=== PATIENT | male | born 1955 | race Caucasian/White ===

== ENCOUNTER 2018-04-13 11:49 | Inpatient (IN) ==
[2018-04-13] MEDS ORDERED: Sodium Chloride 0.9% 1,000 ML PRIMARY IV ONE (12:03)
[2018-04-13] MEDS ORDERED: PANTOPRAZOLE IV 40 MG VIAL IVP ONE (12:03)
[2018-04-13] MEDS ORDERED: MORPHINE SULFATE 4 MG/1 ML IVP ONE (12:03)
[2018-04-13] MEDS ORDERED: ONDANSETRON 4 MG/2 ML VIAL IVP ONE (12:03)
[2018-04-13 12:30] LABS: BASOPHILS # (AUTO) 0.06 10*3/UL; BASOPHILS % (AUTO) 0.5 % (0-1); EOSINOPHILS # (AUTO) 0.34 10*3/UL; EOSINOPHILS % (AUTO) 2.9 % (0-8); Hematocrit [HCT] 43.8 % (42.0-52.0); Hemoglobin [HGB] 15.2 g/dL (14.0-18.0); LYMPHOCYTES # (AUTO) 2.58 10*3/uL; MEAN CORPUSCULAR HGB CONC 34.7 g/dL (33-37); MEAN CORPUSCULAR VOLUME 86.4 FL (80-90); MEAN PLATELET VOLUME 9.7 FL (7.4-12.2); MONOCYTES # (AUTO) 0.87 10*3/UL (0.3-0.8); MONOCYTES % (AUTO) 7.5 % (5-15); NEUTROPHILS # (AUTO) 7.69 10*3/UL; NEUTROPHILS % (AUTO) 66.7 % (50-80); PLATELET MORPHOLOGY COMMENT NORMAL MORPHOLOGY (NORM); RBC MORPHOLOGY COMMENT NORMAL MORPHOLOGY (NORM); RED BLOOD COUNT 5.07 10^6/uL (4.70-6.10); WBC MORPHOLOGY COMMENT NORMAL MORPHOLOGY (NORM)
[2018-04-13 12:43] LABS: BLOOD UREA NITROGEN 15 mg/dL (7-22); BUN/CREATININE RATIO 16.66 (6-20); LIPASE 216 IU/L (23-300); SERUM ALBUMIN 4.5 g/dL (3.5-4.8)
--- NOTE | 2018-04-13 12:49 | EKG ---
Measurements Intervals [place] Rate: 60 P: 18 MS: 163 QRS: -12 QRSD: 97 T: 56 QT: 434 QTc: 435 Interpretive Statements SINUS RHYTHM MODERATE VOLTAGE CRITERIA FOR LVH, CONSIDER NORMAL VARIANT [MEETS CRITERIA IN ONE OF: R(aVL), S(V1), R(V5), R(V5/V6)+S(V1)] NONSPECIFIC T-WAVE ABNORMALITY No previous ECG available for comparison Electronically Signed On 04-13-18 14:25:51 MDT by Prince Burns MD [email or web address]
[2018-04-13 13:38] LABS: BILIRUBIN,URINE NEGATIVE (NEG); CLARITY,URINE CLEAR (CLEAR); COLOR,URINE YELLOW (Y); GLUCOSE, URINE (UA) NEGATIVE (NEG); OCCULT BLOOD,URINE NEGATIVE (NEG); PH,URINE 5.5 (5.0-8.5); PROTEIN,URINE NEGATIVE (NEG); URINE SAMPLE TYPE CLEAN CATCH URINE; UROBILINOGEN,URINE 0.2 EU/dL (0.2)
--- NOTE | 2018-04-13 14:02 | DI ---
CT Abdomen/Pelvis W Contrast 04/13/2018 12:03 PM History: Abdominal Pain Comparison: None. Technique: Imaging was performed with a multi-detector CT scanner. Data acquisition was obtained from the dome of the diaphragm through the pubic symphysis without oral contrast and after the uneventful administration of 75 mL of Isovue intravenous contrast material. Multiplanar reformations were perfo rmed. Findings: There is a 4.8 x 3.9 x 5.0 cm cyst in the body/tail of the pancreas. There is surrounding f at stranding that extends along the posterior peritoneal wall. There are no associated calcifications . The lung bases are clear. There is an 8 mm lesion in the left adrenal gland containing macroscopic fat, consistent with an adre nal myelolipoma. There are multiple hypoattenuating subcentimeter lesions in the left kidney that are too small to characterize, though statistically most likely represent simple cysts. There is a 5 mm nonobstructive nephrolith in the lower pole of the right kidney. There is normal CT appearance of the liver, gallbladder, right adrenal gland, spleen. Hollow viscus organs demonstrate normal course and caliber. There is no free intraperitoneal air or fluid. No abdominopelvic lymphadenopathy is present. Vascular structures are intact with atheromatous aortic and coronary artery calcifications. There is no abdominal wall hernia. There are small bilateral fat-containing inguinal hernias. The prostate is enlarged. The osseous structures are within normal limits for the patient's age. Impression: 1. Pancreatic cyst as described above. Differential considerations include a pancreatic pseudocyst, a serous cystadenoma, an intraductal papillary mucinous neoplasm (IPMN), and a simple pancreatic cyst. An MRI of the pancreas may be obtained for further characterization and to evaluate for pancreatic d uct communication. 2. Left adrenal myelolipoma. 3. Nonobstructive right nephrolith.
[2018-04-13] MEDS ORDERED: HYDROmorphone 2 MG/1 ML IVP ONE (14:24)
[2018-04-13] MEDS ORDERED: HYDROmorphone 2 MG/1 ML ONE (14:25)
[2018-04-13] MEDS ORDERED: CALCIUM CARBONATE 500 MG (TUMS) CHEWABLE TABLET PO PRN (17:40)
[2018-04-13] MEDS ORDERED: ONDANSETRON 4 MG/2 ML VIAL IVP PRN (17:40)
[2018-04-13] MEDS ORDERED: ACETAMINOPHEN 325 MG TABLET PO PRN (17:40)
[2018-04-13] MEDS ORDERED: LIDOCAINE W/ SODIUM BICARB 0.5 ML SYR SUBD PRN (17:40)
[2018-04-13] MEDS ORDERED: DOCUSATE 100 MG CAPSULE PO PRN (17:40)
--- NOTE | 2018-04-13 17:50 | PDOC ---
HPI - History of Present Illness Date of Service: 04/13/18 Time of Service: 17:00 Chief Complaint: Abdominal pain of 3 days' duration History of Present Illness: This is a 63 years old male with medical history significant for history of hypertension, diabetes, history of an aortic dissection that did not need surgery, and history of pancreatitis about a year and a half ago [place] [facility] [place] which was thought to be related to alcohol. He said he started to have pain in the abdomen mainly on the left side of the abdomen with no radiation more or less constant pain he rated it about 8 he tried Tylenol and ibuprofen at home didn't help much with the pain. He had an appointment with the [place] [facility] today and from there they sent him to the ER. He denied nausea or vomiting and no diarrhea. A CT of the abdomen showed a cyst in the tail of the pancreas. The ER physician did speak with the taxi driver supervisor in [place] and one in [place]. [place] suggested that he have an endoscopic ultrasound drainage. He did speak with therapeutic endoscopist at the [facility] who suggested admission locally to treat the pain first and may be outpatient follow up with them if his pain is controlled. Currently he said his pain is about 7 out of 10. Still in the same area. No other symptoms. Past Medical History Medical History: 1. Hypertension. 2. Diabetes. 3. History of pancreatitis with previous pancreatic cyst. He said is been followed up at the [place] and he had a CT either end of last year or the beginning of this year and they told him it was small. 4. History of aortic dissection based on his description. He said he was treated medically. They think it was chronic even at the time he was diagnosed with it. Surgical History: 1. Tonsillectomy Family History: Reviewed an Not Pertinent Past Social History: Used to smoke used to drink quite a year and half ago. No drugs. Lives here in [place]. He is adopted. Tobacco Use: Never Smoker In the Past 12 Months, Have Used or Abuse Any of the Following Substance: None Alcohol Use: None Medication / Allergies Home Medications: Home Medications 3 Medication Instructions Recorded Confirmed Type Aspirin 81 mg PO DAILY 04/16/17 04/13/18 History Atorvastatin Calcium 40 mg PO DAILY 04/16/17 04/13/18 History Lipase/Protease/Amylase [Pancreaze 1 ea PO TID 04/16/17 04/13/18 History 10,500 Unit Cap] Metoprolol Tartrate 12.5 mg PO BID 04/16/17 04/13/18 History Venlafaxine HCl [Effexor] 375 mg PO DAILY 04/16/17 04/13/18 History metFORMIN Tab [Glucophage Tab] 250 mg PO BID 04/16/17 04/13/18 History traZODone Tab [Desyrel Tab] 50 mg PO HS 04/16/17 04/13/18 History Allergies/Adverse Reactions: Allergies 3 Allergy/AdvReac Type Severity Reaction Status Date / Time No Known Allergies Allergy Verified 04/14/18 07:01 Review of Systems - Review of Systems All Systems: Reviewed & No Additional Complaints Except as Stated Exam - Vitals Vital Signs: Vital Signs Temperature 97 F Temperature Source Temporal Artery Scan Pulse Rate [Pulse Oximeter] 72 Respiratory Rate 16 Blood Pressure [Left Arm] 166/92 Pulse Ox 94 Oxygen Flow Rate 2 Oxygen Delivery Method Nasal Cannula Height 5 ft 8 in Weight 216 lb 9.6 oz - General General Appearance: No Acute Distress - Head Head Exam: Normal Inspection - Eye Eye Exam: POSITIVE: Normal Appearance - ENT ENT Exam: POSITIVE: Normal Exam - Neck Neck Exam: Normal Inspection - Respiratory Respiratory Exam: POSITIVE: Clear to Auscultation - Bilaterally - Cardiovascular Cardiovascular Exam: POSITIVE: RRR - GI/Abdominal GI/Abdominal Exam: POSITIVE: Normal Bowel Sounds, Non Distended, Soft, No Organomegaly Additional GI/Abdominal Exam Details: There is some tenderness in the left upper quadrant. - Rectal Rectal Exam: POSITIVE: Deferred - External Exam: POSITIVE: Deferred Exam: POSITIVE: Deferred - Extremities Extremities Exam: POSITIVE: Normal Inspection - Back Back Exam: POSITIVE: Normal Inspection - Neurological Neurological Exam: POSITIVE: Alert, Oriented x 3, CN II-XII Intact, No Facial Droop, Speech Intact / Clear, Moves All Extremities Equally - Psychiatric Psychiatric Exam: POSITIVE: Normal Affect - Integumentary Integumentary Exam: POSITIVE: Normal Color Results - Labs CBC and BMP: 04/14/18 04:25 04/14/18 04:25 - EKG Data -: EKG Interpreted by Me Rate: Normal EKG Shows Normal: Sinus Rhythm - EKG Data When Compared to Previous EKG(s) There Are: Other (Nonspecific T-wave changes) - Imaging Status: Report Reviewed by Me (CT abdomen There is a 4.8 x 3.9 x 5.0 cm cyst in the body/tail of the pancreas. There is surrounding fat stranding that extends along the posterior peritoneal wall. There are no associated calcifications.) Assessment and Plan - Patient Problems (1) Pancreatic cyst Current Visit: Yes Status: Acute Comment: We'll put him on ice chips, IV fluid and pain medications. Consider starting him on clear liquid tomorrow. If pain is not controlled in 24-[address] [facility] and see their recommendation Code(s): K86.2 - Cyst of pancreas (2) Hypertension Current Visit: Yes Status: Acute Comment: Same med Code(s): I10 - Essential (primary) hypertension (3) Depression Current Visit: Yes Status: Acute Comment: Same medications Code(s): F32.9 - Major depressive disorder, single episode, unspecified
[2018-04-13] MEDS: Lactated Ringers 1,000 ML PRIMARY IV SCH (17:59)
[2018-04-13] MEDS: HYDROmorphone 2 MG/1 ML IVP PRN ×2 (18:00→21:35)
[2018-04-13] MEDS: Metoprolol TARTRATE Tab 25 MG TAB PO SCH (21:32)
[2018-04-13] MEDS: traZODone Tab 50 MG TAB PO SCH (21:32)
--- NOTE | 2018-04-13 23:24 | PDOC ---
Abdomen/Flank HPI - General Chief Complaint: General Medical Stated Complaint: acute pancreatitis Date Seen by Provider: 04/13/18 Time Seen by Provider: 11:55 Source: POSITIVE: Patient Exam Limitations: POSITIVE: No limitations Nurse's Notes Reviewed & Considered: Yes - History of Present Illness Initial Comments: The patient is a 63-year-old male who presents to the emergency department with abdominal pain. He states that he had onset of primarily upper abdominal pain approximately 2 days ago. This has progressively worsened. He has had associated nausea however has not had any vomiting. He denies any change in stool. He does not have any fever. He denies chest pain or shortness of breath. He states that he has a history of pancreatitis approximately 1-1/2 years ago at which time he was hospitalized at [facility]. The patient primarily receives care through the [place] and he went to the clinic there this morning. They recommended that he come to the emergency department. He states that his current pain feels very similar to the pain that he experienced when he had pancreatitis. He states that he stopped drinking a year and a half ago after his previous episode of pancreatitis. - Patient Home Medications Home Medications: Home Medications Aspirin 81 mg PO DAILY 04/16/17 Atorvastatin Calcium 40 mg PO DAILY 04/16/17 Lipase/Protease/Amylase [Patience Navarro 10,500 Unit Cap] 1 ea PO TID 04/16/17 Metoprolol Tartrate 12.5 mg PO BID 04/16/17 Venlafaxine HCl [Effexor] 375 mg PO DAILY 04/16/17 metFORMIN Tab [Glucophage Tab] 250 mg PO BID 04/16/17 traZODone Tab [Desyrel Tab] 50 mg PO HS 04/16/17 - Patient Allergies Allergies/Adverse Reactions: Allergies 3 Allergy/AdvReac Type Severity Reaction Status Date / Time No Known Allergies Allergy Verified 04/13/18 17:24 Past Medical History - heen HEENT History: Denies History Cardiovascular History: Hypertension, Hyperlipidemia, Other (please comment) Additional Cardiovasular History: AAA-SMALL AORTIC DISSECTION DISCOVERED 2017 Respiratory History: Denies History Gastrointestinal History: Pancreatitis Genitourinary History: Denies History Endocrine History: Type 2 Diabetes (oral) Musculoskeletal History: Denies History Prosthesis or Implant: No Neurological History: Denies History Blood Disorders: Denies History Psychiatric History: Depression, Anxiety Disorders History of Sexually Transmitted Diseases: No Male Reproductive History: Denies History Cancer History: Denies History In Past Year Been Physically Harmed or Verbally Threatened: No History of MDRO: No History of Other Communicable Diseases: No Tobacco Use: Never Smoker In the Past 12 Months, Have Used or Abuse Any Substance: None Previous Surgical History: Yes Type / Date of Surgery: TONSILLECTOMY, Anesthesia Reactions: No Malignant Hyperthermia: No Significant Family History: No pertinent family hx Past Medical History Reviewed: Reviewed - No Changes ROS - Limitations ROS Limitations: No Limitations Constitution: DENIES: Chills, Fever Cardiovascular: REPORTS: Denies Cardiac Symptoms Respiratory: REPORTS: Denies Resp Symptoms Gastrointestinal: REPORTS: Abdominal Pain, Nausea. DENIES: Vomitting, Diarrhea , Black Stools Musculoskeletal: REPORTS: Denies MS Symptoms Genitourinary: REPORTS: Denies Symptoms. DENIES: Flank Pain Eyes: REPORTS: Denies Symptoms ENT: REPORTS: Denies Symptoms Skin: DENIES: Rash Abdominal/Flank Pain PE - General Appearance General Appearance: POSITIVE: Alert, Cooperative, No Acute Distress - HEENT HEENT: POSITIVE: Head Inspection Nml, Eyes Inspection Nml, Ears Inspection Nml, Nose Inspection Nml - Neck Neck: POSITIVE: Normal Inspection. NEGATIVE: Lymphadenopathy - Respiratory Respiratory: POSITIVE: No Respiratory Distress, Breath Sounds Normal - Cardiovascular Cardiovascular: POSITIVE: Regular Rate and Rhythm, Heart Sounds Normal Peripheral Pulses: Dorsalis-pedis (R): 2+, Dorsalis-pedis (L): 2+ - Abdomen Abdomen: Soft: (All Quadrants), Normal Bowel Sounds: (All Quadrants), No Distention: (All Quadrants) Additional Abdominal Details: He does have tenderness primarily in the epigastric region without guarding or rebound tenderness, no palpable mass - Back Back: NEGATIVE: CVA Tenderness (R), CVA Tenderness (L) - Skin Skin: POSITIVE: Intact, No Rash - Extremities Extremity: Normal ROM: (All Extremities), Normal Inspection: (All Extremities) Abdomen Progress - Results Reviewed by me Xrays/CTs/US Reviewed by me: Yes Discussed with Radiologist: Yes Radiology Findings: CT scan abdomen and pelvis without IV contrast shows a 5 cm cyst in the tail the pancreas with some surrounding fat stranding/inflammation per radiologist. Lab Results Reviewed by Me: Yes CBC and BMP: 04/14/18 04:25 04/14/18 04:25 Lab Results:: Laboratory Results 3 04/13/18 04/13/18 04/13/18 12:15 12:15 12:15 WBC 11.55 H RBC 5.07 Hgb 15.2 Hct 43.8 MCV 86.4 MCH 30.0 MCHC 34.7 RDW Std Deviation 47.4 RDW Coeff of [place] 15.1 H Plt Count 278 MPV 9.7 Immature Gran % (Auto) 0.1 Neut % (Auto) 66.7 Lymph % (Auto) 22.3 [place] % (Auto) 7.5 Eos % (Auto) 2.9 Baso % (Auto) 0.5 Immature Gran # (Auto) 0.01 Neut # (Auto) 7.69 Lymph # (Auto) 2.58 [place] # (Auto) 0.87 H Eos # (Auto) 0.34 Baso # (Auto) 0.06 WBC Morphology Comment Normal morphology Plt Morphology Comment Normal morphology RBC Morph Comment Normal morphology Sodium 140 Potassium 4.4 Chloride 104 Carbon Dioxide 28 Anion Gap 8 BUN 15 Creatinine 0.9 Estimated GFR > 60 BUN/Creatinine Ratio 16.66 Glucose 106 Calculated Osmolality 290.0 Calcium 9.8 Magnesium 1.9 Total Bilirubin 0.7 AST 20 L ALT 33 Alkaline Phosphatase 80 Troponin I < 0.012 C-Reactive Protein 8.1 H Total Protein 8.0 Albumin 4.5 Globulin 3.5 Albumin/Globulin Ratio 1.20 L Amylase 70 Lipase 216 Ur Collection Type Urine Color Urine Clarity Urine pH Ur Specific [place] Urine Protein Urine Glucose (UA) Urine Ketones Urine Occult Blood Urine Nitrate Urine Bilirubin Urine Urobilinogen Ur Leukocyte Esterase Ur Culture Indicated? Serum Alcohol 3 04/13/18 04/13/18 12:15 13:30 WBC RBC Hgb Hct MCV MCH MCHC RDW Std Deviation RDW Coeff of [place] Plt Count MPV Immature Gran % (Auto) Neut % (Auto) Lymph % (Auto) [place] % (Auto) Eos % (Auto) Baso % (Auto) Immature Gran # (Auto) Neut # (Auto) Lymph # (Auto) [place] # (Auto) Eos # (Auto) Baso # (Auto) WBC Morphology Comment Plt Morphology Comment RBC Morph Comment Sodium Potassium Chloride Carbon Dioxide Anion Gap BUN Creatinine Estimated GFR BUN/Creatinine Ratio Glucose Calculated Osmolality Calcium Magnesium Total Bilirubin AST ALT Alkaline Phosphatase Troponin I C-Reactive Protein Total Protein Albumin Globulin Albumin/Globulin Ratio Amylase Lipase Ur Collection Type Clean catch urine Urine Color Yellow Urine Clarity Clear Urine pH 5.5 Ur Specific [place] <=1.005 Urine Protein Negative Urine Glucose (UA) Negative Urine Ketones Negative Urine Occult Blood Negative Urine Nitrate Negative Urine Bilirubin Negative Urine Urobilinogen 0.2 Ur Leukocyte Esterase Negative Ur Culture Indicated? Culture not set Serum Alcohol < 10 - Patient's Progress MDM / ED Course: The patient was fairly uncomfortable on arrival to the emergency department. An IV was established and he received morphine and Zofran initially for pain control. He continued to have pain after CT and received Dilaudid 1 mg IV. His blood work reveals a mildly elevated white count and CRP with normal liver and pancreas enzymes. CT scan of the abdomen and pelvis shows a 5 cm cyst in the tail the pancreas with some associated fat stranding and inflammatory changes per radiologist. The patient was initially discussed with the hospitalist and he recommended referral to tertiary care. I subsequently spoke with the stenciling machine tender Dr. Springer at [facility]. He reviewed the patient's CT with the interventional radiologist and his recommendation was for referral to a center that does endoscopic ultrasound-guided drainage and/or waiting 2-4 weeks and repeating imaging prior to intervention. I subsequently spoke with Dr. Oliva who is a therapeutic stenciling machine tender at [facility] in [place]. He recommended that the patient received conservative management with pain control initially with outpatient follow-up for evaluation and potential drainage/biopsy. He recommended more urgent transfer or referral if his pain gets worse or his clinical presentation worsens. I subsequently discussed the patient with Dr. Holt and he is agreed to admit the patient here for conservative pain control. Dr. Oliva was able to review the patient's CT after the patient had been admitted. He thought that the patient would require drainage/biopsy which he will arrange as an outpatient unless the patient's clinical condition worsens. These findings and recommendations were discussed with the patient and his family and he is agreement with this plan. - Consult Counseled: POSITIVE: Patient, Family, RE: Lab Results, RE: Radiology Results, RE : DX, RE: Need for F/U Patient Care Time - Estimated PCT Patient Care Time (In Minutes): 45 Vital Signs - Recent Vital Signs Vital Signs: Vital Signs (Last 8 hours) Temp Pulse Pulse Pulse Resp BP BP 04/13/18 20:03 98.5 F 68 18 148/78 04/13/18 18:30 72 16 04/13/18 17:27 97 F 72 16 166/92 04/13/18 17:24 16 04/13/18 17:02 98.7 F 75 18 147/83 Pulse Ox 04/13/18 20:03 92 04/13/18 18:30 04/13/18 17:27 94 04/13/18 17:24 04/13/18 17:02 94 - VS Reviewed Vital Signs Reviewed: Yes Discharge Clinical Impression: Pancreatic cyst, Abdominal pain Condition: Stable Date Decision to Admit to Inpatient: 04/13/18 Time Decision to Admit to Inpatient: 16:20
[2018-04-14] MEDS: Lactated Ringers 1,000 ML PRIMARY IV SCH ×3 (01:22→23:02)
[2018-04-14] MEDS: HYDROmorphone 2 MG/1 ML IVP PRN ×2 (03:45→13:39)
[2018-04-14 04:40] LABS: BASOPHILS # (AUTO) 0.05 10*3/UL; BASOPHILS % (AUTO) 0.6 % (0-1); EOSINOPHILS # (AUTO) 0.28 10*3/UL; EOSINOPHILS % (AUTO) 3.3 % (0-8); Hematocrit [HCT] 41.6 % (42.0-52.0); Hemoglobin [HGB] 13.9 g/dL (14.0-18.0); LYMPHOCYTES # (AUTO) 1.57 10*3/uL; MEAN CORPUSCULAR HEMOGLOBIN 29.8 PG (27-31); MEAN CORPUSCULAR HGB CONC 33.4 g/dL (33-37); MEAN CORPUSCULAR VOLUME 89.1 FL (80-90); MEAN PLATELET VOLUME 9.7 FL (7.4-12.2); MONOCYTES # (AUTO) 0.73 10*3/UL (0.3-0.8); MONOCYTES % (AUTO) 8.7 % (5-15); NEUTROPHILS # (AUTO) 5.73 10*3/UL; NEUTROPHILS % (AUTO) 68.5 % (50-80); RED BLOOD COUNT 4.67 10^6/uL (4.70-6.10)
[2018-04-14 04:44] LABS: PLATELET MORPHOLOGY COMMENT NORMAL MORPHOLOGY (NORM); RBC MORPHOLOGY COMMENT NORMAL MORPHOLOGY (NORM); WBC MORPHOLOGY COMMENT NORMAL MORPHOLOGY (NORM)
[2018-04-14 05:06] LABS: BLOOD UREA NITROGEN 14 mg/dL (7-22); BUN/CREATININE RATIO 15.55 (6-20); LIPASE 102 IU/L (23-300); SERUM ALBUMIN 3.7 g/dL (3.5-4.8)
--- NOTE | 2018-04-14 07:34 | PDOC(PROG) ---
Date of Service: 04/14/18 Time of Service: 07:20 Interval History: Subjective Patient feels better today compared to yesterday. He is denying abdominal pain today. He said the last time he needed pain medication was around 3 or 4 this morning. No nausea. Objective : Data - Labs CBC and BMP: 04/14/18 04:25 04/14/18 04:25 Objective : Exam - General General Appearance: No Acute Distress, Cooperative - Head Head Exam: Normal Inspection - Eye Eye Exam: Normal Appearance - ENT ENT Exam: Normal Exam - Neck Neck Exam: Normal Inspection - Respiratory Respiratory Exam: Clear to Auscultation - Bilaterally - Cardiovascular Cardiovascular Exam: RRR - GI/Abdominal GI/Abdominal Exam: Normal Bowel Sounds, Non Distended, Soft, No Organomegaly Additional GI/Abdominal Exam Details: There is minimal tenderness in the left upper quadrant. - Rectal Rectal Exam: Deferred - External Exam: Deferred Exam: Deferred - Extremities Extremities Exam: Normal Inspection - Back Back Exam: Normal Inspection - Neurological Neurological Exam: Alert, Oriented x 3, CN II-XII Intact, No Facial Droop, Speech Intact / Clear, Moves All Extremities Equally - Psychiatric Psychiatric Exam: Normal Affect - Integumentary Integumentary Exam: Normal Color Assessment and Plan - Patient Problems (1) Pancreatic cyst Current Visit: Yes Status: Acute Comment: His pain seems to be better controlled today. I think we'll cut back on his fluid. Will put him on clear liquid and advance as tolerated. Also will write for oral pain medication. Will watch him another night and see how his symptoms are tomorrow and then decide about releasing him or keeping him in the hospital. He will need outpatient follow-up with gastroenterology in [place]. Code(s): K86.2 - Cyst of pancreas (2) Hypertension Current Visit: Yes Status: Acute Comment: Same medication Code(s): I10 - Essential (primary) hypertension (3) Depression Current Visit: Yes Status: Acute Comment: Same med Code(s): F32.9 - Major depressive disorder, single episode, unspecified
[2018-04-14] MEDS: VENLAFAXINE XR 75 MG CAP PO SCH (08:22)
[2018-04-14] MEDS: LIPASE/PROTEASE/AMYLASE 1 EACH CAPSULE PO SCH ×3 (08:23→20:24)
[2018-04-14] MEDS: HYDROcodone-APAP 5 MG -325 MG TABLET PO PRN ×4 (08:23→20:25)
[2018-04-14] MEDS: Metoprolol TARTRATE Tab 25 MG TAB PO SCH ×2 (08:23→20:25)
[2018-04-14] MEDS: PANTOPRAZOLE IV 40 MG VIAL IVP SCH (08:23)
[2018-04-14] MEDS ORDERED: VENLAFAXINE HCL PO SCH (09:00)
[2018-04-14] MEDS: AmLODIPine Tab 5 MG TABLET PO SCH (09:20)
[2018-04-14] MEDS: traZODone Tab 50 MG TAB PO SCH (20:25)
[2018-04-14] MEDS ORDERED: ATORVASTATIN 40 MG TABLET PO SCH (21:00)
[2018-04-15] MEDS: LIPASE/PROTEASE/AMYLASE 1 EACH CAPSULE PO SCH ×2 (07:43→08:21)
[2018-04-15 07:46] VITALS: BP 162/70; RESP 18; TEMP 99; O2SAT 93
[2018-04-15] MEDS: VENLAFAXINE XR 75 MG CAP PO SCH (08:20)
[2018-04-15] MEDS: AmLODIPine Tab 5 MG TABLET PO SCH (08:20)
[2018-04-15] MEDS: HYDROcodone-APAP 5 MG -325 MG TABLET PO PRN ×2 (08:20→12:26)
[2018-04-15] MEDS: Metoprolol TARTRATE Tab 25 MG TAB PO SCH (08:20)
[2018-04-15] MEDS: PANTOPRAZOLE IV 40 MG VIAL IVP SCH (08:20)
--- NOTE | 2018-04-15 09:47 | DCSUMMARY ---
Hospitalization Summary Admit Date: 04/13/2018 Discharge Date: 04/15/18 Hospital Course: Transfer diagnoses 1. Pancreatic cyst, 4.8 x 3.9 x 5 cm in the body/tail of the pancreas. There is surrounding fat stranding that extends along the posterior peritoneal wall. 2. History of acute pancreatitis before 3. Left adrenal myolipoma 4. Nonobstructive right nephrolith 5. History of hypertension 6. History of diabetes 7. History of aortic dissection based on his description, treated medically. Hospital course This is a 63 years old male with medical history significant for history of hypertension, diabetes, history of an aortic dissection that did not need surgery and history of pancreatitis about a year and a half ago, he ended up in [facility] which was thought to be related to alcohol. He said he started to have pain in the abdomen mainly in the left side of the abdomen no radiation more or less constant pain he rates it may be 8 out of 10. He tried Tylenol and ibuprofen at home and that didn't help much. He Had an appointment with the [facility] on the day of admission and they sent him to the ER. There was no nausea or vomiting. A CT of the abdomen showed a cyst in the tail/body of the pancreas. The ER physician spoke with 2 gastroenterologists. One in [place] suggested an endoscopic ultrasound drainage. Then he spoke with the therapeutic endoscopist at the [facility] who suggested admission locally to treat the pain first and may be outpatient follow up with them if his pain is well controlled. Initially when I saw him his exam was remarkable for some tenderness in the left upper quadrant. We put him on ice chips, IV fluid and pain medication. The next day it seems that his pain was less so we put him on a clear liquid diet and continued with the IV pain medication and added oral pain medication. Later on during the day he started to have worsening pain and needed IV Dilaudid. Then he didn't have anything after that until this morning he had some Jell-O and started to have pain again. Because of the recurrence of pain I did speak with Dr. Sims hospitalist at [facility] in [place] he accepted the patient, the patient will be transferred at one point in time. Per the ER note, the ER physician was able to send the CT to the oncology account specialist Dr. Oliva in [place] and he recommended drainage/biopsy. Patient did accept transfer. Transfer instruction Diet clear liquid Activity as tolerated Medications Active Medications Acetaminophen (Tylenol) 650 mg PO Q6H PRN PRN Reason: Pain or Fever Last Admin: 04/14/18 03:46 Dose: 650 mg Hydrocodone Bitart/Acetaminophen (Paige 5/325 Tab) 1 - 2 tab PO Q4H PRN PRN Reason: Pain Last Admin: 04/15/18 08:20 Dose: 2 tab Amlodipine Besylate (Norvasc) 5 mg PO DAILY [facility] Last Admin: 04/15/18 08:20 Dose: 5 mg Lipase/Protease/Amylase (Creon 17124 Cap) 1 cap PO TID [facility] Last Admin: 04/15/18 08:21 Dose: Not Given Atorvastatin Calcium (Lipitor) 40 mg PO BEDTIME [facility] Last Admin: 04/14/18 20:25 Dose: 40 mg Calcium Carbonate (Tums) 1 - 2 tab PO Q6H PRN PRN Reason: Heartburn Docusate Sodium (Colace) 100 mg PO BID PRN PRN Reason: Constipation Hydromorphone HCl (Dilaudid Inj) 1 mg IVP Q2H PRN PRN Reason: Pain Last Admin: 04/14/18 13:39 Dose: 1 mg Lactated Ringer's (Lr) 1,000 mls @ 75 mls/hr PRIMARY IV .[id number] [facility] Last Admin: 04/14/18 23:02 Dose: 75 mls/hr Sodium Chloride (Normal Saline 0.9%) 25 mls @ 200 mls/hr IV .Post Infusion PRN PRN Reason: No Primary IV for Flush ONLY Lidocaine HCl (Lidocaine Buffered Inj) 0.5 ml SUBD ONCE PRN PRN Reason: IV Starts Metoprolol Tartrate (Lopressor Tab) 12.5 mg PO BID [facility] Last Admin: 04/15/18 08:20 Dose: 12.5 mg Ondansetron HCl (Zofran Inj) 4 mg IVP Q4H PRN PRN Reason: NAUSEA / VOMITING Pantoprazole Sodium (Protonix Inj) 40 mg IVP DAILY [facility] Last Admin: 04/15/18 08:20 Dose: 40 mg Trazodone HCl (Desyrel Tab) 50 mg PO BEDTIME [facility] Last Admin: 04/14/18 20:25 Dose: 50 mg Venlafaxine HCl (Effexor Xr) 225 mg PO DAILY [facility] Last Admin: 04/15/18 08:20 Dose: 225 mg [facility] Condition [facility] stable for transfer Exam - Vitals Vital Signs: Vital Signs Temperature 99 F Temperature Source Oral Pulse Rate [Apical] 63 Pulse Rate [Pulse Oximeter] 62 Pulse Rate 75 Respiratory Rate 18 Blood Pressure [Left Arm] 162/70 Blood Pressure 147/83 Pulse Ox 93 Oxygen Flow Rate 2 Oxygen Delivery Method Nasal Cannula Height 5 ft 8 in Weight 214 lb 12.8 oz - General General Appearance: No Acute Distress, Cooperative - Head Head Exam: Normal Inspection - Eye Eye Exam: POSITIVE: Normal Appearance - ENT ENT Exam: POSITIVE: Normal Exam - Neck Neck Exam: Normal Inspection - Respiratory Respiratory Exam: POSITIVE: Clear to Auscultation - Bilaterally - Cardiovascular Cardiovascular Exam: POSITIVE: RRR - GI/Abdominal GI/Abdominal Exam: POSITIVE: Normal Bowel Sounds, Non Distended, Soft, No Organomegaly Additional GI/Abdominal Exam Details: Some tenderness is still present in the left upper quadrant. - Rectal Rectal Exam: POSITIVE: Deferred - External Exam: POSITIVE: Deferred Exam: POSITIVE: Deferred - Extremities Extremities Exam: POSITIVE: Normal Inspection - Back Back Exam: POSITIVE: Normal Inspection - Neurological Neurological Exam: POSITIVE: Alert, Oriented x 3, Normal Gait, CN II-XII Intact , No Facial Droop, Speech Intact / Clear, Moves All Extremities Equally - Psychiatric Psychiatric Exam: POSITIVE: Normal Affect Patient Problems - Patient Problem List (1) Pancreatic cyst Current Visit: Yes Status: Acute Code(s): K86.2 - Cyst of pancreas Category: Medical (2) Hypertension Current Visit: Yes Status: Acute Code(s): I10 - Essential (primary) hypertension Category: Medical (3) Depression Current Visit: Yes Status: Acute Code(s): F32.9 - Major depressive disorder , single episode, unspecified Category: Medical
[2018-04-15] MEDS: Lactated Ringers 1,000 ML PRIMARY IV SCH ×2 (12:26→14:17)
[2018-04-15] MEDS ORDERED: LIPASE/PROTEASE/AMYLASE 1 EACH CAPSULE PO SCH (12:30)
== END 2018-04-15 14:10 | disposition short-term general hospital (02) | DRG 440 ==
LOC: ER 11:49 → MED/SURG 16:42
PROVIDERS: ADMIT Internal Medicine; ATTEND Internal Medicine